=== PATIENT | male | born 1985 | race Caucasian/White ===

== ENCOUNTER 2023-07-26 15:41 | Emergency (ER) | payer SELFPAY ==
[2023-07-26 15:53] VITALS: BP 135/92; PULSE 140; RESP 18; TEMP 38.7; O2SAT 98
--- NOTE | 2023-07-26 16:06 | ED.GENADULT ---
HPI - General Adult General Chief complaint: Upper Respiratory Infection Stated complaint: Fever/Sore Throat Source: patient Mode of arrival: ambulatory Limitations: no limitations History of Present Illness HPI narrative: Patient presents for evaluation of generally not feeling well. He indicates that last week he had some generalized body aches. His symptoms subsided. He woke from sleep this afternoon with a sore throat, discomfort in left side of his neck, fever, and chills. No nausea, vomiting, diarrhea. His child had some generalized body aches last week. He took tylenol cold and sinus about one hour ago. 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 He does not smoke but uses chew tobacco. Related Data Allergies Allergy/AdvReac Type Severity Reaction Status Date / Time No Known Allergies Allergy Verified 07/26/23 16:02 Review of Systems Review of Systems: CONSTITUTIONAL: Reports fever and chills EYES: Denies visual changes, redness, or discharge. ENT:Reports sore throat and neck discomfort on the left. Denies rhinorrhea, congestion, or otalgia. CARDIOVASCULAR: Denies chest pain, palpitations, or edema. RESPIRATORY: Denies cough or dyspnea. GASTROINTESTINAL: Denies abdominal pain, nausea, vomiting, or diarrhea. GENITOURINARY: Denies dysuria or hematuria. SKIN: Denies rash or itching. MUSCULOSKELETAL: Reports generalized body aches NEUROLOGIC: Denies headache, numbness, dizziness, or weakness. PSYCHIATRIC: Denies anxiety or depression. [facility] Past Medical History Medical History (Updated 07/26/23 @ 17:54 by Abel Lopez, VARUN, ) No pertinent past medical history Surgical History Surgical History No pertinent past surgical history Family History Family History (Updated 07/26/23 @ 16:15 by Abel Lopez, VARUN, ) Mother Family history non-contributory Social History Social History Tobacco type: smokeless tobacco Smokeless tobacco user: chewing tobacco Substance use: former Substance use type: heroin Living arrangements: with family Gender identity (if verbalized by the patient): Male Sexual Orientation (if Verbalized by the Patient): Straight or Heterosexual Spiritual care concerns: No Exam Narrative: GENERAL: Well-appearing, well-nourished, and in no acute distress. HEAD: Normocephalic, atraumatic. EYES: PERRLA and EOMI. ENT: Nares clear, no rhinorrhea or epistaxis. Mucous membranes moist. Diffuse dental decay. Multiple fractured teeth, wrote it down to the gumline. No visible or palpable abscess. There is posterior pharyngeal erythema without exudate. Uvula is midline. NECK: Supple. Left cervical lymphadenopathy. no carotid bruits or JVD CHEST: Clear to auscultation. No respiratory distress. No wheezes rales or rhonchi HEART: Rate 152. Regular rhythm. No murmur heard. Normal peripheral pulses. ABDOMEN: Soft, nontender, nondistended, normal active bowel sounds. EXTREMITIES: Normal range of motion. No edema. SKIN: Warm, dry, no rash. NEURO: No focal deficits. Alert and oriented x3. PSYCH: Normal mood and affect. Course Course Emergency Course: This is a 37-year-old male who presented for evaluation of generalized sick symptoms. His initial heart rate was 140. He is afebrile so he is given antipyretic. Rate improved down to the 80s, however increased to 110-120's. EKG was performed and showed sinus tachycardia. He was hydrated and clinically looked significantly improved. Heart rate normalized. He states he feels well enough to go home. I recommended he follow-up with his primary care doctor tomorrow to determine whether heart monitor is clinically warranted. Strep positive. Will tx with amoxicillin. Go to the ER for chest pain, rapid heart rate, palpit
[2023-07-26 16:11] VITALS: TEMP 38.7
[2023-07-26] MEDS: IBUPROFEN 400 MG TABLET 800 MG PO (16:11)
[2023-07-26 16:41] VITALS: TEMP 37.1
--- NOTE | 2023-07-26 17:43 | ECG_ITS ---
Measurements Intervals [place] Rate: 117 P: 12 MT: 120 QRS: -3 QRSD: 82 T: 25 QT: 304 QTc: 426 Interpretive Statements SINUS TACHYCARDIA DELAYED PRECORDIAL R/S TRANSITION ABNORMAL ECG NO PREVIOUS ECG AVAILABLE FOR COMPARISON Electronically Signed On 07-26-2023 20:14:27 CDT by David Camarena D.O.
== END 2023-07-26 17:55 | disposition home or self-care (01) ==
PROVIDERS: Emergency Provider Nurse Practitioner; PCP Physician Assistant
DX: J02.0 Streptococcal pharyngitis (principal); R00.0 Tachycardia, unspecified; F17.220 Nicotine dependence, chewing tobacco, uncomplicated
CPT/HCPCS: 87880; 93005; 99213; A9270; G0463

== ENCOUNTER 2024-06-17 16:34 | Emergency (ER) | payer SELFPAY ==
[2024-06-17 16:44] VITALS: BP 145/87; PULSE 110; RESP 18; TEMP 36.9; O2SAT 99
--- NOTE | 2024-06-17 16:50 | ED.GENADULT ---
HPI - General Adult General Chief complaint: Unspecified Stated complaint: Blood Pressure Problem Source: patient Mode of arrival: ambulatory Limitations: no limitations History of Present Illness HPI narrative: Patient presents for medication refill. He indicates he has been on lisinopril 10 mg daily. He ran out 3 days ago. Does not have a primary care provider per recurrent is not have insurance. Denies any headache, chest pain, shortness of breath other symptoms. He was simply like a medication refill. Related Data Home Medications Medication Instructions Recorded Confirmed lisinopril 10 mg tablet mg 06/17/24 Allergies Allergy/AdvReac Type Severity Reaction Status Date / Time No Known Allergies Allergy Verified 06/17/24 16:38 Review of Systems Review of Systems: CONSTITUTIONAL: Denies fever, chills, or sweats. EYES: Denies visual changes, redness, or discharge. ENT: Denies rhinorrhea, congestion, sore throat, or otalgia. CARDIOVASCULAR: Denies chest pain, palpitations, or edema. RESPIRATORY: Denies cough or dyspnea. GASTROINTESTINAL: Denies abdominal pain, nausea, vomiting, or diarrhea. GENITOURINARY: Denies dysuria or hematuria. SKIN: Denies rash or itching. MUSCULOSKELETAL: Denies back pain, joint pain, or myalgia. NEUROLOGIC: Denies headache, numbness, dizziness, or weakness. PSYCHIATRIC: Denies anxiety or depression. [facility] Past Medical History Medical History (Updated 06/17/24 @ 16:53 by Abel Lopez, [facility], ) No pertinent past medical history Surgical History Surgical History No pertinent past surgical history Family History Family History (Updated 07/26/23 @ 16:15 by Abel Lopez, [facility], ) Mother Family history non-contributory Social History Social History Tobacco type: smokeless tobacco Smokeless tobacco user: chewing tobacco Substance use: former Substance use type: heroin Living arrangements: with family Gender identity (if verbalized by the patient): Male Sexual Orientation (if Verbalized by the Patient): Straight or Heterosexual Spiritual care concerns: No Exam Narrative: GENERAL: Well-appearing, well-nourished, and in no acute distress. HEAD: Normocephalic, atraumatic. EYES: PERRLA and EOMI. ENT: Nares clear, no rhinorrhea or epistaxis. Mucous membranes moist. Oropharynx without tonsillar hypertrophy exudate or other lesions. Bilateral TMs pearly roberts nonbulging NECK: Supple. No adenopathy or masses. No carotid bruits or JVD CHEST: Clear to auscultation. No respiratory distress. No wheezes rales or rhonchi HEART: Regular rate and rhythm. No murmur heard. Normal peripheral pulses. ABDOMEN: Soft, nontender, nondistended, normal active bowel sounds. EXTREMITIES: Normal range of motion. No edema. SKIN: Warm, dry, no rash. NEURO: No focal deficits. Alert and oriented x3. PSYCH: Normal mood and affect. Course Course Emergency Course: This is a 38-year-old male who presented to [facility] requesting a refill on lisinopril 10 mg daily. He requested a 90 day script. I advised that renal function should be monitored while on yury inhibitors so I can provide him with 30 day script and he should follow-up with on-call primary care provider for chemistry profile. Go to the emergency department for chest pain or shortness of breath. Patient in agreement with plan of care Level of Care: [facility] Vital Signs Vital signs: Vital Signs Temperature 36.9 C 06/17/24 16:44 Pulse Rate 110 H 06/17/24 16:44 Respiratory Rate 18 06/17/24 16:44 Blood Pressure 145/87 H 06/17/24 16:44 Pulse Oximetry 99 06/17/24 16:44 Oxygen Delivery Room Air 06/17/24 16:44 Temperature 36.9 C 06/17/24 16:44 Pulse Rate 110 H 06/17/24 16:44 Respiratory Rate 18 06/17/24 16:44 Blood Pressure 145/87 H 06/17/24 1
== END 2024-06-17 16:55 | disposition home or self-care (01) ==
PROVIDERS: Emergency Provider Nurse Practitioner
DX: Z76.0 Encounter for issue of repeat prescription (principal); I10 Essential (primary) hypertension
CPT/HCPCS: 99211; G0463